=== PATIENT | male | born 1955 | race Caucasian/White ===

== ENCOUNTER 2018-04-22 11:18 | Inpatient (IN) | payer BC ==
[~2018-04-22 11:18] MED LIST: Buffered Lidocaine 0.9% SYRIN* 5 ML/SYR SYRINGE INTRADERM ONE; Dexamethasone IV* 4 MG/ML 1 ML (4 MG) IV SLOW PU ONE; Famotidine IV* 10 MG/ML 2 ML (20 mg) IV ONE
--- OUTSIDE RECORDS SUMMARY | 2018-04-22 11:22 | XMS REPORT ---
:1955 External Reference #:[id number] Author Organization [employer] Address [address] [place] [address] [place] [address] Phone [phone] Care Team Providers Name Role Phone Juan Diego Rolle MD Primary Care Physician Unavailable Payers Type Date Identification Numbers Payment Provider Subscriber Commercial Effective: Policy Number: BS [employer] Ned Stiles Jennyfer 2013 [id number] PayID: [id number] [address] [address] [place] [address] Medigap Part B Expires: 2014 Policy Number: [employer]arianna Jaymie Trivedi Jennyfer [id number] PayID: [employer] [address] [place] [address] Problems Date Description Provider Status Onset: 07/15/2017 Neck pain Deyanira Stuart MD Active Onset: 07/15/2017 Displacement of cervical Deyanira Stuart MD Active intervertebral disc Onset: 07/15/2017 Brachial neuritis Deyanira Stuart MD Active Onset: 08/26/2017 Cervical disc disorder Deyanira Stuart MD Active Onset: 02/23/2018 Cervical spondylosis with Deyanira Stuart MD Active myelopathy Family History Date Family Member(s) Problem(s) Comments General Diabetes General Heart Disease Siblings 1 Social History Type Date Description Comments Marital Status Lives With Occupation Currently Working Works at [employer] work Cigarette Use Never Smoked Cigarettes ETOH Use Occasionally consumes alcohol Smoking Patient has never smoked Recreational Drug Use Denies Drug Use Daily Caffeine Consumes on average 4 cups of regular coffee per day Exercise Type/Frequency Exercises sporadically Allergies, Adverse Reactions, Alerts Date Description Reaction Status Severity Comments 05/30/2013 Ibuprofen active 08/26/2017 Wasp Venoms active Medications Medication Date Status Form Strength Qnty SIG Indications Ordering Provider No Active Active Unknown Medications 015 Percocet Hx Tablets 5-325mg 40tabs 1-2 by Freda 015 - mouth Mitch Akhtar every 015 4-6 hour as needed pain No Active Hx Unknown Medications 013 - 014 No Active Hx Unknown Medications 013 - 013 Ultracet Hx Tablets 37.5-325mg 30tabs 1 - 2 po Freda Coombs - q4-6hr Mitch Akhtar prn pain 013 Medrol Dosepak Hx Tablets 4mg Samuel Mensah - Zupruk, Mitch 013 Hydrocodone-Ac Hx Tablets 5-325mg 30tabs 1 by Freda etaminophen 000 - mouth Mitch Akhtar every 6 015 hours prn. Medications Administered in Office Medication Date Status Form Strength Qnty SIG Indications Ordering Provider Depomedrol Administered Injection Freda 80MG Malvin Akhtar M.D. Vital Signs Date Vital Result Comment 03/29/2018 Height 71 inches 5'11" Weight 193.00 lb Heart Rate 70 /min BP Systolic 118 mmHg BP Diastolic 80 mmHg BMI (Body Mass Index) 26.9 kg/m2 03/16/2018 Height 71 inches 5'11" Weight 190.00 lb BP Systolic Sitting 124 mmHg BP Diastolic Sitting 80 mmHg Pain Level 5 BMI (Body Mass Index) 26.5 kg/m2 02/23/2018 Height 71 inches 5'11" Weight 190.00 lb BP Systolic Sitting 138 mmHg BP Diastolic Sitting 84 mmHg Pain Level 6 BMI (Body Mass Index) 26.5 kg/m2 08/26/2017 Height 71 inches 5'11" Weight 190.00 lb Heart Rate 68 /min BP Systolic Sitting 122 mmHg BP Diastolic Sitting 72 mmHg Pain Level 3 BMI (Body Mass Index) 26.5 kg/m2 07/15/2017 Height 71 inches 5'11" Weight 191.00 lb Heart Rate 74 /min BP Systolic Sitting 124 mmHg BP Diastolic Sitting 67 mmHg Pain Level 6 BMI (Body Mass Index) 26.6 kg/m2 01/10/2015 Heart Rate 68 /min BP Systolic Sitting 110 mmHg BP Diastolic Sitting 74 mmHg 11/27/2014 Heart Rate 68 /min BP Systolic Sitting 112 mmHg BP Diastolic Sitting 72 mmHg 11/01/2014 Heart Rate 78 /min BP Systolic Sitting 122 mmHg BP Diastolic Sitting 80 mmHg 10/04/2014 Heart Rate 78 /min BP Systolic Sitting 122 mmHg BP Diastolic Sitting 76 mmHg 09/06/2014 Heart Rate 78 /min BP Systolic Sitting 128 mmHg BP Diastolic Sitting 80 mmHg 08/21/2014 Height 71 inches 5'11" Weight 187.00 lb Heart Rate 66 /min BP Systolic Sitting 112 mmHg BP Diastolic Sitting 72 mmHg BMI (Body Mass Index) 26.1 kg/m2 07/05/2014 Heart Rate 76 /min BP Systolic Sitting 128 mmHg BP Diastolic Sitting 82 mmHg 06/28/2014 Height 71 inches 5'11" Weight 187.00 lb Heart Rate 71 /min BP Systolic Sitting 112 mmHg BP Diastolic Sitting 72 mmHg BMI (Body Mass Index) 26.1 kg/m2 05/30/2013 Height 71 inches 5'11" Weight 190.00 lb BMI (Body Mass Index) 26.5 kg/m2 Results Test Date Test Result H/L Range Note Surgical Pathology 08/29/2014 S RUN DATE: 09/06/ <SEE NOTE> 1 1 RUN DATE: 09/06/14 [facility] LAB LIVE PAGE 1 RUN TIME: [address] [place] [id number] Specimen Inquiry Name: NED BURGER : [address]: Freda Akhtar MD Acct: [id number] Unit: [id number] AGE: 59 Location: [facility] Re08/29/14 SEX: M Status: REG SDC SPEC: [id number] MARLYN: 08/29/14- [facility] DR: Freda Akhtar MD REQ: [id number] RECD: 08/29/14 STATUS: SOUT _ ORDERED: Decal, LEVEL III FINAL DIAGNOSIS Left shoulder, partial resection: -- Benign cartilaginous and synovial tissue fragments with reactive change. -- Portion of acromium with severe degenerative osteoarthritic changes and normocellular bone marrow with mixed trilinear hematopoiesis. PRE-OPERATIVE DIAGNOSIS Left rotator cuff tear. GROSS DESCRIPTION The specimen is received in formalin labeled, Portion of Acromion Left Shoulder and Bursa, and consists of a 3.5 x 3.0 x 1.2 cm aggregate of multiple penn-red irregular bone fragments. Received separately in the same container is a 2.8 x 1.7 x 0.5 cm aggregate of penn-white rubbery soft tissue fragments. Range Operator sections are submitted in cassettes A and B to include soft tissue in cassette A and bone following decalcification in cassette B. MICROSCOPIC DESCRIPTION Signed (signature on file) Mich Jean MD 1355 END OF REPORT * ML=Testing performed at Main Lab DEPARTMENT OF PATHOLOGY, [address] [place] [address] Mich Jean M.D. Director [facility] # [id number] Procedures Date CPT Code Description Status 08/29/2014 07467 Repair Ruptured Musculotendinous Cuff Open, Chronic Completed 07/05/2013 17131 Trigger Finger Release Incision / Tendon Sheath Completed Incision 07/05/2013 96126 Trigger Finger Release Incision / Tendon Sheath Completed Incision 12/30/2012 02002 Inject Tendon Sheath Or Ligament Aponeurosis Eg Plantar Completed Fascia Encounters Type Date Location Provider CPT E/M Dx Office Visit 03/16/2018 [facility] 98965 M50.122 3:30p Of Kaur Stuart MD M50.123 M47.12 M50.220 M48.02 Office Visit 02/23/2018 9:00a [facility] 78579 M50.122 Of Kaur Stuart MD M50.123 M47.12 Office Visit 08/26/2017 1:00p [facility] 85166 M50.220 Of Kaur Stuart MD M50.122 M50.123 Office Visit 07/15/2017 10:30a [facility] 44529 M50.220 Of Kaur Stuart MD M50.122 M50.123 Office Visit 01/10/2015 8:15a [facility] 41423 840.4 [facility] 9:[facility]a [facility] 06257 840.4 [facility]/2014 1:30p [facility] 79503 840.4 [facility] 06/28/2014 1:00p [facility] 56549 840.4 [facility] 05/30/2013 10:00a [facility] 99800 727.03 Kaur PARADA [facility] Office Visit 11/17/2011 9:00a [facility] 87671 729.5 Of Kaur Meyer Office Visit 01/21/2007 9:15a [facility] 57444 721.0 Of Kaur Meyer 722.0 Office Visit 01/13/2007 10:15a [facility] Jaqueline, 37887 722.0 [facility] Mitch Plan of Care Future Appointment(s):04/20/2018 4:00 pm - Deyanira Stuart MD at [facility]04/22/2018 10:30 am - Deyanira Stuart MD at [facility]03/29/2018 - Dillan Gross M.D.M50.123 Cervical disc disorder at C6-C7 level with radiculopathy
--- OUTSIDE RECORDS SUMMARY | 2018-04-22 11:22 | XMS REPORT ---
:1955 External Reference #:[id number] Author Organization [facility] Address [address] [place] [address] Phone [phone] Care Team Providers Name Role Phone Juan Diego Rolle MD Care Team Information Cartography Supervisor Unavailable Juan Diego Rolle MD Primary Care Physician Unavailable Payers Type Date Identification Numbers Payment Provider Subscriber Commercial Effective: Policy Number: BC/BS Of LIAT Ned Rodarte 2012 [id number] Group Name: [employer] [address] [address] PayID: [id number] [place] [address] Problems Date Description Provider Status Onset: 06/30/2017 Neck pain Juan Diego Rolle M.D. Active Onset: 10/16/2016 Sprain of medial collateral ligament Abimael Worley M.D. Active of knee Onset: 11/12/2015 Benign prostatic hypertrophy without Juan Diego Rolle M.D. Active outflow obstruction Onset: 11/12/2015 Adult health examination Juan Diego Rolle M.D. Active Onset: 04/16/2012 Acute upper respiratory infection Majninder Muñoz M.D. Active Social History Type Date Description Comments Occupation Size Stamper TC3 Cigarette Use Nonsmoker Smoking Patient has never smoked Allergies, Adverse Reactions, Alerts Date Description Reaction Status Severity Comments 08/15/2003 Ibuprofen active 04/16/2012 Wasps active Medications Medication Date Status Form Strength Qnty SIG Indications Ordering Provider Epipen 2-Dusty 05/02 Active Solution 0.3mg/0.3 1unit as directed Juan Diego Petit Hua [employer] ML s [place], [place] M.D. Methylprednisolone 06/30 Hx TBPK 4mg 21uni take as Juan Diego F. ts directed Aquilino - M.DMarianna 03/17 Tramadol HCL 06/30 Hx Tablets 50mg 30tab 1 by mouth Juan Diego F. s every 6 Shallish, - hours as M.D. 03/17 Prednisone 10/16 Hx Tablets 20mg 10tab 1 by mouth S83.411A Abimael T. s twice a day Meir, - for 5 days M.D. 06/29 Prednisone 06/14 Hx Tablets 20mg 10tab 1 by mouth 726.19 Oc s twice a day Azam, - for 5 days M.D. 11/11 Hydrocodone-Acetam 06/14 Hx Tablets 5-325mg 20tab 1 every 6 726.19 Oc ino s hours as Azam, - needed M.D. 11/11 Zithromax Z-Dusty 04/16 Hx Tablets 250mg 1Pack as directed Manjinder Lawson Cristine Muñoz M.D. 06/14 Gabapentin 11/06 Hx Capsules 100mg 60cap 1 po tid . edgar Rolle - M.DMarianna 04/16 Azithromycin 10/31 Hx Tablets 250mg 6tabs take 2 465.9 tablets by Ragini, - mouth CLINICAL WRITER 11/06 today take 1 tablet daily for next 4 days Physical Therapy 01/15 Hx please Yolanda evaluate [facility], - and treat Afnp-C 10/31 for l knee pain--suspe ct patellar syndrome Azithromycin 12/15 Hx Tablets 250mg 6tabs 2 po today Abimael T. and 1 po x Midura, - 4 days M.D. 01/15 Penlac 12/15 Hx Solution 8% 1Bott apply q hs Abimael T. le Meir, - M.D. 11/06 Robitussin A-C 03/10 Hx 4Oz 1-2 tsp po Juan Diego F. q4h prn Aquilino, - cough M.D. 12/15 Zithromax 03/10 Hx Tablets 250mg 6Tabs 2 po qd 466.0 Juan Diego . today , Aquilino, - then 1 po M.D. 03/13 qd times Augmentin 06/30 Hx Tablets 875mg 20tab 1 PO bid Yolanda s Rosmery, - Afnp-C 07/10 Take With Food Hydrocodone/Apap 01/07 Hx Tablets 5/500 60tab 1-2 po q Juan Diego F. s 4-6 hr prn Aquilino - M.DMarianna 03/10 Flexeril 01/07 Hx Tablets 10mg 30tab 1 po tid Juan Diego F. s prn muscle Aquilino, - spasm M.D. 03/10 Lotrimin 07/28 Hx Solution 1% use 1-2 Manjinder Lawson /2005 qhs Cristine Muñoz M.D. 03/10 Prednisone 06/03 Hx Tablets 20mg 10tab 2 tabs po Juan Diego . s qd for 2 Aquilino, - days, then M.D. 07/06 decrease 2 tab every 2 days then stop Margo 06/03 Hx 180mg 30uni 1 po qd prn Abimael T. ts Cristine Worley.DMarianna 11/06 Motrin 05/22 Hx 600mg 40uni 1 PO tid . ts prn With Aquilino, - Meals M.D. 08/15 Entex Pse 08/16 Hx 20uni 1 PO bid ts prn Head [facility], - Congestion Afnp-C 08/26 Robitussin Dac 08/16 Hx Liq 120cc 1-2 TSP PO qid prn [facility], - Cough Afnp-C 08/26 Amoxicillin 10/02 Hx Tablets 500mg 21tab 1 Tablet 3 Juan Diego F. s Times Daily Cristine Rolle M.D. 10/15 Entex Pse 10/02 Hx 20uni 1 bid prn Juan Diego F. ts Congestion Cristine Rolle M.D. 10/15 Medrol 03/09 Hx Dose Pack 1unit as Directed Mich Pierce /2000 Cristine Jha M.D. 03/15 Epipen 03/09 Hx 1unit as directed Abimael Whitehead /2000 Cristine Monroy M.D. 05/02 Keflex 04/03 Hx Tabs 5Oomg 14tab 1 PO bid Manjinder Lawson /1998 Cristine Engel M.D. 04/10 Medications Administered in Office Medication Date Status Form Strength Qnty SIG Indications Ordering Provider Injection 06/03/ Injection Renetta Subcutaneous Or 2003 Ragini, Intramuscular CLINICAL WRITER Immunizations CPT Code Status Date Vaccine Lot # [id number] Given 11/12/2015 Tdap Tetanus, W Pertussis [id number] Given 01/05/2015 Zostivax [id number] Given 05/07/2013 DO Not Use Split Influenza Virus Vaccine [id number] 52513 Given 05/27/2008 DO Not Use Split Influenza Virus Vaccine [id number] 32495 Given 06/30/2007 Tetanus And Diptheria Adult Preservative Free >7Yrs 67226 Given 06/05/2007 DO Not Use Split Influenza Virus Vaccine [id number] 92365 Given 06/29/2006 DO Not Use Split Influenza Virus Vaccine 21719 Given 06/19/2005 DO Not Use Split Influenza Virus Vaccine [id number] Given 06/22/2003 DO Not Use Split Influenza Virus Vaccine 26952 Given 06/22/2003 DO Not Use Split Influenza Virus Vaccine 12545 Given 07/12/2002 Influenza Immunization Vital Signs Date Vital Result Comment 04/17/2018 BP Systolic 90 mmHg BP Diastolic 60 mmHg Heart Rate 72 /min Body Temperature 98.1 F Respiratory Rate 16 /min Height 71 inches 5'11" Weight 195.00 lb BMI (Body Mass Index) 27.2 kg/m2 06/30/2017 BP Systolic 110 mmHg BP Diastolic 78 mmHg Heart Rate 78 /min Body Temperature 97.9 F Height 71 inches 5'11" Weight 199.12 lb BMI (Body Mass Index) 27.8 kg/m2 10/16/2016 BP Systolic 114 mmHg BP Diastolic 72 mmHg Heart Rate 90 /min Body Temperature 98.1 F Respiratory Rate 16 /min Height 71 inches 5'11" Weight 201.25 lb BMI (Body Mass Index) 28.1 kg/m2 11/12/2015 BP Systolic 128 mmHg BP Diastolic 72 mmHg Heart Rate 62 /min Body Temperature 97.7 F Respiratory Rate 12 /min Height 71 inches 5'11" Weight 199.25 lb BMI (Body Mass Index) 27.8 kg/m2 06/14/2014 BP Systolic 128 mmHg BP Diastolic 76 mmHg Heart Rate 72 /min Body Temperature 97.9 F Respiratory Rate 16 /min Height 71 inches 5'11" Weight 198.00 lb BMI (Body Mass Index) 27.6 kg/m2 04/16/2012 BP Systolic 112 mmHg BP Diastolic 68 mmHg Heart Rate 78 /min Body Temperature 97.7 F Respiratory Rate 20 /min O2 % BldC Oximetry 97 % Height 71 inches 5'11" Weight 198.00 lb BMI (Body Mass Index) 27.6 kg/m2 11/07/2011 BP Systolic 112 mmHg BP Diastolic 68 mmHg Heart Rate 68 /min Respiratory Rate 15 /min Height 71 inches 5'11" Weight 199.00 lb BMI (Body Mass Index) 27.8 kg/m2 10/31/2010 BP Systolic 110 mmHg BP Diastolic 60 mmHg Heart Rate 80 /min Body Temperature 98.3 F Respiratory Rate 22 /min Weight 197.00 lb 01/15/2010 BP Systolic 110 mmHg BP Diastolic 66 mmHg Heart Rate 68 /min Body Temperature 97.4 F Respiratory Rate 20 /min Weight 196.00 lb 12/15/2009 BP Systolic 106 mmHg BP Diastolic 66 mmHg Heart Rate 72 /min Body Temperature 98.6 F Height 71 inches 5'11" Weight 194.00 lb BMI (Body Mass Index) 27.1 kg/m2 03/10/2009 BP Systolic 120 mmHg BP Diastolic 70 mmHg Heart Rate 88 /min Body Temperature 99.4 F Height 71 inches 5'11" Weight 194.00 lb BMI (Body Mass Index) 27.1 kg/m2 03/15/2008 BP Systolic 114 mmHg BP Diastolic 62 mmHg Heart Rate 70 /min Height 71 inches 5'11" Weight 198.00 lb BMI (Body Mass Index) 27.6 kg/m2 06/30/2007 BP Systolic 124 mmHg BP Diastolic 82 mmHg Heart Rate 66 /min Respiratory Rate 13 /min Height 71 inches 5'11" 01/07/2007 BP Systolic 110 mmHg BP Diastolic 80 mmHg Heart Rate 68 /min Body Temperature 98.7 F Height 71 inches 5'11" Weight 196.00 lb BMI (Body Mass Index) 27.3 kg/m2 07/28/2006 BP Systolic 100 mmHg BP Diastolic 70 mmHg Body Temperature 98.8 F Height 71 inches 5'11" Weight 202.00 lb BMI (Body Mass Index) 28.2 kg/m2 01/30/2006 BP Systolic 116 mmHg BP Diastolic 70 mmHg Heart Rate 60 /min Height 71 inches 5'11" Weight 207.00 lb BMI (Body Mass Index) 28.9 kg/m2 03/15/2004 BP Systolic 112 mmHg BP Diastolic 82 mmHg Heart Rate 74 /min Height 71 inches 5'11" Weight 202.00 lb BMI (Body Mass Index) 28.2 kg/m2 08/15/2003 BP Systolic 110 mmHg BP Diastolic 78 mmHg Heart Rate 80 /min Body Temperature 98.9 F Height 71 inches 5'11" Weight 201.00 lb BMI (Body Mass Index) 28.0 kg/m2 07/06/2003 BP Systolic 110 mmHg BP Diastolic 88 mmHg Heart Rate 72 /min Body Temperature 96.4 F Height 71 inches 5'11" Weight 201.00 lb BMI (Body Mass Index) 28.0 kg/m2 06/03/2003 BP Systolic 92 mmHg BP Diastolic 72 mmHg Heart Rate 76 /min Body Temperature 96.0 F Height 71 inches 5'11" 05/22/2003 BP Systolic 102 mmHg BP Diastolic 60 mmHg Height 71 inches 5'11" Weight 200.00 lb BMI (Body Mass Index) 27.9 kg/m2 08/16/2002 BP Systolic 92 mmHg BP Diastolic 68 mmHg Body Temperature 98.8 F Height 71 inches 5'11" Weight 197.00 lb BMI (Body Mass Index) 27.5 kg/m2 10/02/2001 BP Systolic 98 mmHg BP Diastolic 70 mmHg Body Temperature 97.8 F Height 71 inches 5'11" Weight 183.00 lb BMI (Body Mass Index) 25.5 kg/m2 03/09/2001 BP Systolic 108 mmHg BP Diastolic 68 mmHg Heart Rate 70 /min Body Temperature 98.0 F Respiratory Rate 16 /min Height 71 inches 5'11" Weight 190.00 lb BMI (Body Mass Index) 26.5 kg/m2 05/14/2000 BP Systolic 110 mmHg BP Diastolic 64 mmHg Height 71 inches 5'11" Weight 193.00 lb BMI (Body Mass Index) 26.9 kg/m2 04/03/1999 BP Systolic 120 mmHg BP Diastolic 84 mmHg Height 71 inches 5'11" Weight 189.00 lb 02/19/1998 BP Systolic 110 mmHg BP Diastolic 70 mmHg Body Temperature 97.6 F Height 71 inches 5'11" Weight 185.00 lb Right Visual Acuity Distance 20/20 Left Visual Acuity Distance 20/20 04/25/1997 BP Systolic 100 mmHg BP Diastolic 70 mmHg Heart Rate 8484 /min Body Temperature 98.7 F Respiratory Rate 2020 /min Height 56.50 inches 4'8.50" Weight 77.00 lb Results Test Date Test Result H/L Range Note Urinalysis Profile 04/16/2018 Urine Color Yellow 1 Urine Appearance Clear 1 Urine Specific Mcdougal 1.015 1.010-1.030 1 Urine pH 7.0 5-9 1 Urine Urobilinogen Negative Negative 1 Urine Ketones Negative Negative 1 Urine Protein Negative Negative 1 Urine Leukocytes Negative Negative 1 Urine Blood Negative Negative 1 Urine Nitrite Negative Negative 1 Urine Bilirubin Negative Negative 1 Urine Glucose Negative Negative 1 CBC No Diff 2018 White Blood Count 6.7 10^3/uL 3.5-10.8 Red Blood Count 5.16 10^6/uL 4.00-5.40 Hemoglobin 15.6 g/dL 14.0-18.0 Hematocrit 44 % 42-52 Mean Corpuscular Volume 86 fL 80-94 Mean Corpuscular Hemoglobin 30 pg 27-31 Mean Corpuscular HGB Conc 35 g/dL 31-36 Red Cell Distribution Width 14 % 10.5-15 Platelet Count 210 10^3/uL 150-450 Mean Platelet Volume 8.2 um3 7.4-10.4 Basic Metabolic Panel 2018 Sodium 140 mmol/L 135-145 Potassium 4.5 mmol/L 3.5-5.0 Chloride 104 mmol/L 101-111 Co2 Carbon Dioxide 30 mmol/L 22-32 Anion Gap 6 mmol/L 2-11 Glucose 87 mg/dL 70-100 Blood Urea Nitrogen 14 mg/dL 6-24 Creatinine 0.94 mg/dL 0.67-1.17 BUN/Creatinine Ratio 14.9 8-20 Calcium 9.3 mg/dL 8.6-10.3 Egfr Non- 80.8 >60 Egfr 97.8 >60 2 Laboratory test finding 2018 TSH (Thyroid Stim Horm) 2.16 mcIU/mL 0.34-5.60 Inr/Protime 2018 Inr 0.88 0.77-1.02 Laboratory test finding 2018 Partial Thrombo Time 31.8 seconds 26.0 -36.3 PTT Type & Screen 2018 Patient Blood Type O Positive Antibody Screen NEGATIVE Laboratory test finding 02/06/2016 Surgical Pathology SEE RESULT BELOW 3 Ua - Non Micro (Fma) 11/12/2015 Appearance yellow Color clear Glucose, Urine (Fma/CMC/CTX) neg Bilirubin neg Ketones neg SP Grav >=1.030 Blood neg PH 6.0 Protein neg Urobil 0.2 Nitrite neg Leukocytes (a/[facility]rex) neg Laboratory test finding 11/12/2015 TSH 2.27 mIU/L 0.50-6.00 4 PSA 0.7 ng/mL 0.0-4.0 Lipid Profile 11/12/2015 Cholesterol 238 mg/dL High 120-200 Triglycerides 82 mg/dL 30-200 HDL Cholesterol 60 mg/dL 30-70 LDL (Calculated) 162 CALC High 0-129 VLDL Cholesterol 16 mg/dL 0-50 HDL Risk Factor 4.0 CALC 0.0-4.4 Comprehensive Metabolic Prof 11/12/2015 Sodium 145 mEq/L 134-149 Potassium 5.1 mEq/L 3.6-5.5 Chloride 105 mEq/L 94-112 Carbon Dioxide 25 mEq/L 21-32 Glucose 104 mg/dL 70-105 BUN 19 mg/dL 6-26 Creatinine 1.0 mg/dL 0.6-1.4 BUN/Creat Ratio 19.0 CALC 8.0-36.0 Calcium 10.1 mg/dL 8.6-10.2 Total Protein 7.5 g/dL 6.4-8.3 Albumin 4.8 g/dL 3.8-5.5 Globulin 2.7 g/dL 2.0-4.8 A/G Ratio 1.8 CALC 0.6-2.3 Alk. Phosphatase 69 U/L 22-95 Alt (SGPT) 16 U/L 7-35 Ast (Sgot) 17 U/L 5-34 Total Bilirubin 0.6 mg/dL 0.2-1.3 GFR Non- >60 ml/min/1.73m^ >=60 GFR >60 ml/min/1.73m^ >=60 Complete Blood Count 11/12/2015 WBC 5.9 x10^3/UL 3.6-9.6 RBC 5.41 x10^6/UL 3.90-5.70 HGB 16.3 g/dL 12.1-17.2 HCT 48 % 36-50 MCV 88.0 fL 82.2-97.4 MCH 30.1 pg 27.6-33.3 MCHC 34.0 g/dL 33.0-35.5 RDW 13.5 % 11.6-13.7 PLT 194 x10^3/UL 150-400 MPV 7.6 fL 7.4-10.4 Gran # 4.2 x10^3/UL 1.5-7.2 Lymph# 1.4 x10^3/UL 0.7-4.9 [place]# 0.3 x10^3/UL 0.1-0.9 Gran % 69.7 % 42.2-75.2 Lymph % 24.9 % 20.5-51.1 [place]% 5.4 % 1.7-9.3 Laboratory test finding 04/16/2012 Quickstrep negative Negative Influenza A&B 03/10/2009 Influenza A negative Influenza B negative Laboratory test finding 08/15/2003 Throat Culture NEGATIVE Comp And Lipid (a) 04/04/1999 Alkaline Phosphatase 44 U/L 40 - 150 BUN 10 mg/dL 7.0 - 22.0 Creatinine 0.8 mg/dL 0.70 - 1.20 Glucose 99 mg/dL 70 - 105 Cholesterol 201 mg/dL High < 200 Triglyceride 66 mg/dL 40 - 160 HDL-Chol 63 mg/dL > 35 Albumin 5.2 GM/DL 3.50 - 5.50 Total Protein 8.3 g/dL 6.4 - 8.3 Calcium 9.9 mg/dL 9.10 - 10.60 Bilirubin, Total 0.5 mg/dL 0.2-1.0 Co2 20.6 22.0 - 30.0 Sodium 136 mEq/L 136.0 - 145.0 Potassium 5.4 mEq/L 3.5 - 5.1 Chloride 105 mEq/L 98.0 - 107.0 LDL-Calculated 125 CBC With Diff (a) 04/04/1999 WBC 3.9 /Hpf 3.6 - 9.6 Lymphocytes 35.0 % 20.5 - 51.1 Monocytes 6.4 % 1.7 - 9.3 Granulocytes 58.6 % 42.2 - 75.2 Lymphocytes 1.4 10^3/uL 0.7 - 4.9 Monocytes 0.2 10^3/uL 0.1 - 0.9 Granulocytes 2.3 10^3/uL 1.5 - 7.2 RBC 4.47 /Hpf 3.90 - 5.70 Hemoglobin 13.8 g/dL 12.1 - 17.2 Hematocrit 40.2 % 36.1 - 50.3 Mean Corpuscular Vol 90.0 fl 82.2 - 97.4 Mean Corpuscular Hemaglobin 30.8 pg 27.6 - 33.3 Mean Corpuscular Hemo Concen 34.3 g/dL 33.0 - 34.8 RDW 13.2 % 11.6 - 13.7 Platelets 21 10^3/ul 202 - 386 Mean Platelet Volume 8.3 fl 7.4 - 10.4 Ua - Non Micro (Fma New) 04/04/1999 Appearance YEL CLEAR SP Grav 1.030 Esterase - Nitrite - pH 5.0 Protein - Glucose - Ketones - Bilirubin - Blood - 1 AA 04/22 2 Because ethnic data is not always readily available, this report includes an eGFR for both -Americans and non- Americans. The National Kidney Disease Education Program (NKDEP) does not endorse the use of the MDRD equation for patients that are not between the ages of 18 and 70, are , have extremes of body size, muscle mass, or nutritional status, or are non- or non-. According to the National Kidney Foundation, irrespective of diagnosis, the stage of the disease is based on the level of kidney function: Stage Description GFR(mL/min/1.73 m(2)) 1 Kidney damage with normal or decreased GFR 90 2 Kidney damage with mild decrease in GFR 60-89 3 Moderate decrease in GFR 30-59 4 Severe decrease in GFR 15-29 5 Kidney failure <15 (or dialysis) 3 SEE RESULT BELOW Name: NDE RODARTE: [address]: Nestor Hand MD Acct: [id number] Unit: [id number] AGE: 60 Location: ENDO Re02/06/16 SEX: M Status: REG REF SPEC: [id number] MARLYN: 02/06/16-[address]: Nestor Hand MD REQ: [id number] RECD: 02/06/16-1617 STATUS: USAMA ANSARI DR: Juan Diego Rolle MD _ ORDERED: LEVEL IV FINAL DIAGNOSIS Colon, 20 cm, biopsy: -- Tubular adenoma. -- No high grade dysplasia or malignancy. POST-OPERATIVE DIAGNOSIS Colonoscopy into terminal ileum, prep good. Small sigmoid colon polyp removed, sigmoid diverticulosis. Conclusions/Plan: Small polyp removed. GROSS DESCRIPTION The specimen is received in formalin labeled, Colon Polyp at 20 cm, and consists of a 0.5 x 0.3 x 0.2 cm speckled penn-red polypoid soft tissue fragment, which is entirely submitted in one cassette. Signed (signature on file) Mich Jean MD [id number] END OF REPORT * ML=Testing performed at Main Lab DEPARTMENT OF PATHOLOGY, [address] [place] [address] Mich Jean M.D. Director [facility] # [id number] FASTING Procedures Date CPT Code Description Status Comment 02/06/2016 Colonoscopy Completed 11/12/2015 33576 Electrocardiogram Complete Completed 04/16/2012 28512 Pulse Oximetry Completed 06/03/2003 27829 Injection Subcutaneous Or Completed 1ML R GLUT DEPOMEDROL Intramuscular 40MG/ML CJ Encounters Type Date Location Provider CPT E/M Dx Office Visit 06/30/2017 3:40p Main Office Juan Diego Rolle, 36420 M54.2 M.DMarianna Office Visit 10/16/2016 2:10p [facility] Abimael Worley M.D. 83154 S83.411A Office Visit 11/12/2015 9:00a [facility] Juan Diego Rolle 08891 Z00.00 Mitch N40.0 Z23 Office Visit 06/14/2014 3:00p Main Office Oc Nascimento M.D. 33420 726.19 Office Visit 04/16/2012 11:00a Main Office Manjinder Muñoz M.D. 45289 465.9 Office Visit 11/07/2011 9:40a [facility] Juan Diego Rolle M.D. 46410 723.1 Office Visit 10/31/2010 1:45p [facility] RC Santiago 18460 465.9 Office Visit 01/15/2010 4:00p [facility] Brianna Hidalgo 17383 719.46 Office Visit 12/15/2009 9:40a Main Office Abimael Worley M.D. 39478 466.0 465.9 461.9 Office Visit 03/10/2009 2:00p Main Office Juan Diego Rolle M.D. 42954 466.0 Office Visit 03/15/2008 6:00p Main Office Brianna Hidalgo 51834 916.4 Office Visit 06/30/2007 4:30p Main Office Brianna Hidalgo 61187 681.01 V06.5 Office Visit 01/07/2007 10:30a Main Office Juan Diego Rolle M.D. 70744 723.4 Office Visit 07/28/2006 4:20p [facility] Manjinder Muñoz M.D. 27298 110.1 Office Visit 01/30/2006 11:00a Main Office Abimael Worley M.D. 17077 726.19 Office Visit 03/15/2004 10:10a [facility] Kaylin Sparks, 84319 729.2 M.DMarianna Office Visit 08/15/2003 10:45a [facility] Renetta Eid [facility] 22142 465.9 462 Office Visit 07/06/2003 10:00a Main Office Aggie HopkinsPeter-C 41469 477.9 Office Visit 06/03/2003 11:30a Main Office RC Santiago 62762 708.9 Office Visit 05/22/2003 1:30p [facility] Juan Diego Rolle M.D. 54473 719.41 Office Visit 08/16/2002 1:00p Main Office Brianna Hidalgo 80510 465.9 Office Visit 10/02/2001 11:20a Main Office Juan Diego Rolle M.D. 84161 Office Visit 09/18/2001 12:00p Main Office Brianna Hidalgo 62782 Office Visit 03/09/2001 8:00p Main Office Mich Wetzel M.D. 17924 Office Visit 05/14/2000 10:00a Main Office Mich Wetzel M.D. 40576 Plan of Care 04/17/2018 - Juan Diego Rolle M.D.M54.2 CervicalgiaComments:Patient is in excellent general health , I feel he is medically cleared for the planned surgery by Dr. WilderComments:Patient to return for a complete physical within a year
[2018-04-22] MEDS ORDERED: Famotidine IV* 10 MG/ML 2 ML (20 mg) ONE (11:39)
[2018-04-22] MEDS ORDERED: Dexamethasone IV* 4 MG/ML 1 ML (4 MG) ONE (11:39)
[2018-04-22] MEDS ORDERED: ceFAZolin 2 GM PREMIX in ORs 2 GM/50 ML BAG IVPB ONE (11:39)
[2018-04-22] MEDS ORDERED: fentaNYL* 50 MCG/ML 5 ML VIAL (250 MCG VIAL) ONE (12:04)
[2018-04-22] MEDS ORDERED: Midazolam* 1 MG/ML 2 ML VIAL (2 MG) ONE (12:04)
[2018-04-22] MEDS ORDERED: Rocuronium* 10 MG/ML VIAL ONE (12:04)
[2018-04-22] MEDS ORDERED: Remifentanil* 2 MG VIAL ONE ×2 (12:05→16:15)
[2018-04-22] MEDS ORDERED: Lidocaine 2% PF * 5 ML VIAL ONE (12:10)
[2018-04-22] MEDS ORDERED: Propofol* 10 MG/ML 20 ML BTL IV PUSH ONE (12:10)
[2018-04-22] MEDS ORDERED: Lidocain 1% EPI 1:100,000 * 30 ML MDV ONE (13:06)
[2018-04-22] MEDS ORDERED: Thrombin 5,000 UNITS* 1 APPLIC KIT - topical use - TOPICAL ONE (13:06)
[2018-04-22] MEDS ORDERED: Bacitracin IV* 50,000 UNITS INJ ONE (13:07)
[2018-04-22] MEDS ORDERED: Atracurium* 10 MG/ML 10 ML VIAL ONE (14:51)
[2018-04-22] MEDS ORDERED: HYDROcodone/ACETAMIN 5-325 MG* 1 TAB PO PRN (15:48)
[2018-04-22] MEDS ORDERED: Acetaminophen TAB* 325 MG PO PRN ×2 (15:48→18:32)
[2018-04-22] MEDS ORDERED: Naloxone* 0.4 MG/ML 1 ML VIAL IV PRN (15:48)
[2018-04-22] MEDS ORDERED: DiMENhydriNATE IV* 50 MG/ML VIAL IV PUSH PRN (15:48)
[2018-04-22] MEDS ORDERED: Ondansetron INJ* 2 MG/ML VIAL IV PRN ×2 (15:48→18:32)
[2018-04-22] MEDS ORDERED: Desflurane* 240 ML INH ONE (17:15)
[2018-04-22] MEDS ORDERED: ceFAZolin 1 GM VIAL(*) ONE (17:46)
[2018-04-22] MEDS ORDERED: Ondansetron INJ* 2 MG/ML VIAL ONE (18:07)
[2018-04-22] MEDS ORDERED: Magnesium Hydroxide LIQ* 30 ML UDC PO PRN (18:32)
[2018-04-22] MEDS ORDERED: fentaNYL* 50 MCG/ML 2 ML VIAL (100 MCG VIAL) ONE (18:38)
[2018-04-22] MEDS: fentaNYL* 50 MCG/ML 2 ML VIAL (100 MCG VIAL) IV PRN ×4 (18:40→19:07)
[2018-04-22] MEDS ORDERED: Morphine INJ* 2 MG/ML 1 ML SYRINGE (TWO MG - NEW SYRINGE VERSION) ONE ×2 (19:09→19:29)
[2018-04-22] MEDS: Morphine INJ* 2 MG/ML 1 ML SYRINGE (TWO MG - NEW SYRINGE VERSION) IV PRN ×2 (19:10→19:30)
--- NOTE | 2018-04-22 19:18 | RAD ---
CPT II Codes: G9500 INDICATION: ACDF of the lower cervical spine TECHNIQUE: Intraoperative fluoroscopy was provided during ACDF of the lower cervical spine. FINDINGS: 4 spot films depict anatomic placement of a lower cervical spine plate and screw fixator with 3 prostatic intervertebral discs. Fluoroscopy time: 33.5 minutes IMPRESSION: As above.
[2018-04-22] MEDS ORDERED: HYDROcodone/ACETAMIN 5-325 MG* 1 TAB ONE (19:52)
[2018-04-23] MEDS: HYDROcodone/ACETAMIN 5-325 MG* 1 TAB PO PRN ×6 (00:25→20:42)
--- NOTE | 2018-04-23 02:36 | OP ---
DATE OF OPERATION: 04/22/18 - ROOM #342 DATE OF : 53 SURGEON: Deyanira Stuart MD [employer]ERS SUPERVISOR: NITA Campos ANESTHESIOLOGIST: ANESTHESIA: General. PRE-OP DIAGNOSIS: Degenerative disk disease with herniated nucleus pulposus. POST-OP DIAGNOSIS: Degenerative disk disease with herniated nucleus pulposus. OPERATIVE PROCEDURE: The patient underwent anterior cervical diskectomy and fusion at C4-C5, C5-C6 and C6-C7 with PEEK interbody cages, locally harvested autologous bone graft and DBX and plate. ESTIMATED BLOOD LOSS: 200 cc. COMPLICATIONS: None. SUMMARY: The patient is a very pleasant 63-year-old gentleman with complaints of neck pain radiating mostly to the left upper extremity with MRI findings consistent with multilevel degenerative disk disease at C4-C5, C5-C6, and C6- C7. After failing conservative treatment modalities, he was offered the option of surgical intervention in the form of anterior cervical diskectomy and fusion. After explaining the expectation, limitations, and possible complications of the procedure to the patient and his son with possible complications including, but not limited to, bleeding, infection, risk of injury to adjacent structures, coma, paralysis, , need for additional procedures, anesthesia risk, stroke, blindness, cancer, instability, hardware failure, adjacent level disease, pseudoarthrosis, Van's syndrome, spinal fluid leak, pseudo-meningocele, anesthesia risk, the need for tracheostomy, oral gastrostomy, risk of residual recurrent laryngeal nerve, need for additional procedures, anesthesia risk, the patient was agreeable to proceed with surgery. Informed consent was obtained. The patient and his family understood that his condition may not improve, in fact may get worse after the surgery and he may need to have additional procedure in the future. They also understood that operative plan may be modified according to the intraoperative findings and conditions. DESCRIPTION OF PROCEDURE: The patient was brought to the operating room and was placed under general anesthesia by the anesthesia team. He was carefully positioned supine on regular table and all bony prominences were meticulously padded. His skin was prepped and draped in the standard fashion. After appropriate surgical pause and patient identification, a small right paramedian incision was made on the skin after infiltrating the skin with local anesthetic. The correct level of incision was identified with the use of fluoroscopic imaging. After incising the skin, the incision was carried down to the platysma with the use of Bovie cautery. The skin was certainly undermined with Metzenbaum scissors and the platysma was divided with the use of Metzenbaum scissors and Bovie cautery. The platysma was undermined and the plane between the medial border of the sternocleidomastoid and the medial structures were gently developed with sharp and blunt dissection after gently dividing the omohyoid. Extensive exposure was performed in order to accommodate adequate exposure and minimize reduction on the soft tissue. Self- retaining retractors were introduced further into the field and [place] pins were placed at the C6-7 level. The [place] pin distractor was introduced into the field and extended diskectomy and decompression was performed after incising the annulus fibrosus with the use of #15 surgical blade. The diskectomy was carried out with use of pituitary rongeurs, Kerrison punches, curettes and high-speed drill. The posterior longitudinal ligament was gently divided under microscopic magnification and extensive foraminotomy was bilaterally well performed at the end of the decompression. The thecal sac was found to be free of any pressure phenomenon and the spinal cord was pulsating nicely. After confirmation of meticulous hemostasis and meticulous inspection and copious irrigation, an 8 mm x 14 mm anatomic PEEK interbody spacer was inserted after being filled with locally harvested bone graft, which was obtained during the diskectomy portion and mixed with DBX. The procedure was repeated for the C5-6 and C4-5 levels and then 8 mm height PEEK cage was introduced into the C5-6 disk space, while at the C4-5 disk space a 9 mm PEEK introduced in order to complete the arthrodesis between C4-5, C5-6, and C6-7. After appropriate sizing, a Zevo Medtronic anterior cervical plate 57 mm long was placed and secured in place with 3.5 x 13 mm Zevo PA screws. Intraoperative fluoroscopic imaging confirmed excellent placement of all hardware. After removing the self-retaining retractors and copious irrigation and confirmation of meticulous hemostasis and meticulous dissection of the wound , the wound was closed by layers over a Alvino drain, which was tunneled through a separate stab wound incision. A 2-0 interrupted Vicryl suture was used to approximate the platysma while 2-0 interrupted Vicryl suture was used to approximate the subcutaneous tissue. The skin was then approximated with Dermabond and adherent suture was used to secure the Alvino drain in place with 3 -0 Monocryl. At the end of the procedure, all counts were reported to be correct and the patient remained hemodynamically stable throughout the case. At the end of the procedure, he was extubated and was transferred to Recovery in excellent condition. The case was done with the assistance of the surgical PA because of the complexity of the case. [id number]/[facility] #: [id number] CHRISTIAN
--- NOTE | 2018-04-23 10:32 | RAD ---
HISTORY: s/p cervical fusion COMPARISONS: August 11, 2017 VIEWS: 5 , Frontal, lateral, and open-mouth odontoid views of the cervical spine. FINDINGS: The cervical spine is visualized from the skull base through C7-T1 . ALIGNMENT: There is straightening of the normal cervical lordosis. VERTEBRAL BODIES: The patient is status post anterior cervical fusion from C4 through C7. There is no hardware failure or osteolysis. JOINTS: There is no subluxation or dislocation. There is uncovertebral and facet osteoarthritis most pronounced at C5-C6. INTERVERTEBRAL DISCS: There is loss of intervertebral disc height. Intervertebral graft material is noted at C4-C5, C5-C6, and C6-C7. SOFT TISSUE: The prevertebral soft tissues are normal. OTHER: The skull base is normal. The lung apices are clear. IMPRESSION: STATUS POST ANTERIOR CERVICAL FUSION.
--- NOTE | 2018-04-23 18:27 | PN ---
Progress Note - Progress Note Date of Service: 04/23/18 SOAP: Subjective: []Patient was seen earlier today and this pm. Tolerated procedure well yesterday. No events ON. Tolerates PO well. Voids, Ambulated well. Transient episode of near fainting when first got OOB this am for XR. NO LOC. No other symptoms. Preop LUE pain resolved. Tolerates MJ collar well. Objective: []VSS afebrile. Wound s,c,d Alvino drain output noted. Drain was removed. Catheter appeared to be intact. Patient tolerated procedure well. AAOx3, LISBET, CN II-XII grossly intact. Motor 5/5 all extremities Sensory grossly intact to light touch. Assessment: []63 yom POD#1 C4-7 ACDF Plan: []Monitor VS, Neurochecks Encourage ambulation. XR revealed good placement of hardware, good alignment of the spine. IM consult for near fainting episode, possibly vasovagal. DC planning. Narciso Aguilar MD
[2018-04-24] MEDS: HYDROcodone/ACETAMIN 5-325 MG* 1 TAB PO PRN ×4 (01:11→14:00)
--- NOTE | 2018-04-24 04:49 | CONS ---
CC: Dr. Stuart; Dr. Juan Diego Rolle * CONSULTATION REPORT: DATE OF CONSULT: 04/23/18. PRIMARY CARE PROVIDER: Dr. Juan Diego Rolle. PHYSICIAN REQUESTING CONSULTATION: Dr. Deyanira Stuart. ATTENDING PHYSICIAN: Dr. Shorty Marie (dictated by Khushi Tadeo NP). REASON FOR CONSULTATION: Dizziness, possible near syncopal episode when getting up. HISTORY OF PRESENT ILLNESS: Mr. Burger is a 63-year-old male with no significant past medical history, who presented to the hospital for an elective anterior cervical diskectomy and fusion at C4-5, C5-6, and C6-7 with PEEK interbody cages locally harvested autologous bone graft and DBX endplates on 02/[address] Stuart. Postoperatively, the patient had been recovering well with no complications. He has denied any fever, chills, chest pain, shortness of breath, nausea, vomiting, diarrhea. The patient states that the first time when he went to get up today early this morning after receiving pain medication and after x-ray he reported an episode of dizziness and clamminess. By the time, he arrived back to the unit from x-ray, he was feeling better and had a cold cloth applied to his forehead. The patient was then resting off and on throughout the shift and on ambulating around the unit without any further symptoms independently with a steady gait. The patient denied any further lightheadedness or dizziness. The hospitalists were asked to consult due to this episode of dizziness. PAST MEDICAL HISTORY: Chronic neck pain with radicular symptoms to the left hand. PAST SURGICAL HISTORY: 1. Status post shoulder rotator cuff repair. 2. Status post anterior cervical diskectomy and fusion of the cervical spine as above in the HPI. HOME MEDICATIONS: Include EpiPen 0.3 mL intramuscularly as directed for allergy symptoms. ALLERGIES: IBUPROFEN and WASPS. FAMILY HISTORY: Reviewed and noncontributory. SOCIAL HISTORY: The patient denies tobacco, alcohol, recreational drug use. His , Jaymie Burger, will be his surrogate decision maker in the event he is unable to make decisions for himself. REVIEW OF SYSTEMS: I performed an 11-point review of systems. All the pertinent positives and negatives are mentioned in the history of present illness. The remaining review of systems are negative. PHYSICAL EXAM: Vital Signs: Temperature 97.8, heart rate 79, O2 sat 97% on room air, blood pressure 117/72. General Appearance: The patient is alert, pleasant, and appears to be in no acute distress. HEENT: Normocephalic, atraumatic. Pupils are equal and reactive to light. Extraocular movements are intact. The patient currently has a [place] J collar in place to his neck. Respiratory: There is no accessory muscle use. The lungs are clear to auscultation bilaterally. Cardiovascular: Regular rate and rhythm. S1 and S2 present. There are no murmurs, rubs or gallops. Abdomen is soft, nontender, and nondistended. There are bowel sounds present x4. Extremities: There is no lower extremity edema. DP and PT pulses are 2+ and symmetric. Musculoskeletal: There is no clubbing or cyanosis noted. The patient exhibits good strength in all extremities. Neurological: The patient is alert and oriented x4. Cranial nerves II through XII are grossly intact. Psychological: The patient is calm and cooperative. Skin: There are no rashes or abnormalities seen. He has a dressing to his anterior neck that is clean, dry, and intact. DIAGNOSTIC STUDIES/LAB DATA: Preop labs from 04/15/18 reveal a sodium of 140, potassium 4.5, chloride 104, CO2 is 30, BUN 14, creatinine 0.94, glucose 87. White blood cell count 6.7, hemoglobin 15.6, hematocrit 44, platelet count 210. IMPRESSION: Mr. Burger is a 63-year-old male with past medical history significant for chronic neck pain with radiculopathy, who is status post an elective ACDF of his cervical spine with Dr. Stuart. He is postop day 1. He was seen in consultation by the hospitalist for complaints of dizziness upon getting up earlier today. ASSESSMENT/PLAN: 1. Dizziness. I suspect this is secondary to the patient's first time getting up postoperatively and combination of pain medication. He is currently not orthostatic and his symptoms have resolved and not returned. He can go home tomorrow per Neurosurgery. 2. Status post anterior cervical diskectomy and fusion of the cervical spine. Management will be per Dr. Stuart. The patient will continue to have his [place] J collar in place. Continue pain medications. 3. Fluids, electrolytes, and nutrition. The patient is on a soft diet. 4. Code status: Full code. 5. DVT prophylaxis: He has SCDs per Neurosurgery. 6. Disposition: Inpatient with disposition per Neurosurgery. TIME SPENT: Time for this consultation was approximately 60 minutes, greater than half of that was spent with the patient discussing medications, past medical history, the events leading up to his arrival today, and performing a physical examination. The case has been reviewed with the attending, Dr. Marie, who agrees with the plan of care. KHUSHI TADEO, DOOR TRIMMER [id number]/[facility] #: [id number] CHRISTIAN
--- NOTE | 2018-04-24 13:21 | PN ---
Progress Note - Progress Note Date of Service: 04/24/18 SOAP: Subjective: []No events ON. Tolerates PO well. Voids, Ambulated well. No other episodes of dizziness. Was evaluated by Hospitalist team and cleared to go home. Preop LUE pain resolved. Tolerates MJ collar well. Wants to go home. Objective: []VSS afebrile. Wound s,c,d AAOx3, LISBET, CN II-XII grossly intact. Motor 5/5 all extremities Sensory grossly intact to light touch. Assessment: []63 yom POD#2 C4-7 ACDF Plan: []]Monitor VS, Neurochecks Encourage ambulation. Appreciate IM consult. DC today. Full DC instructions were given. Narciso Aguilar MD
[2018-04-24 14:28] VITALS: BP 145/88
--- NOTE | 2018-04-24 19:03 | DS ---
DISCHARGE SUMMARY: DATE OF ADMISSION: 04/22/18 DATE OF DISCHARGE: 04/24/18 ADMISSION DIAGNOSES: 1. Degenerative disk disease. 2. Cervical spondylosis with herniated nucleus pulposus. POSTOPERATIVE DIAGNOSES: 1. Degenerative disk disease. 2. Cervical spondylosis with herniated nucleus pulposus. DISPOSITION: Home. DISCHARGE CONDITION: Good. HOSPITAL COURSE: The patient is a very pleasant 63-year-old gentleman with complaints of neck pain radiating mostly to the left upper extremity with MRI findings consistent with multilevel degenerative disk disease at C4-5, C5-6, C6- 7. The patient was offered the options of surgical intervention after failing conservative modalities in the form of anterior cervical diskectomy and fusion. He underwent the above procedure. He tolerated the procedure very well, was extubated and was transferred to the floor. The patient continued to improve. His preoperative left upper extremity pain had completed resolved. His postoperative x- ray revealed good placement of the hardware and good alignment of his cervical spine. He had 1 episode of dizziness while he was getting his x -ray and for this reason, hospitalist service was consulted. The patient was evaluated and was good to be discharged home, and on postoperative day 2, he was felt ready to be discharged home. He was tolerating p.o. well. He had excellent pain control and was able to void and ambulate well. Discharge instructions were given to the patient. [id number]/[facility] #: [id number] MTDD
== END 2018-04-24 14:30 | disposition home or self-care (01) | DRG 23 ==
LOC: AA 11:18 → SSU 20:30
PROVIDERS: ADMIT Neurological Surgery; ATTEND Neurological Surgery
PROC: 0RG20A0 Fusion of 2 or more Cervical Vertebral Joints with Interbody Fusion Device, Anterior Approach, Anterior Column, Open Approach (ICD-10-PCS; 2018-04-22)
PROC: 0RB30ZZ Excision of Cervical Vertebral Disc, Open Approach (ICD-10-PCS; principal; 2018-04-22 12:45)
DX: M50.123 Cervical disc disorder at C6-C7 level with radiculopathy (principal); M47.812 Spondylosis without myelopathy or radiculopathy, cervical region; M25.78 Osteophyte, vertebrae; M50.122 Cervical disc disorder at C5-C6 level with radiculopathy; R42 Dizziness and giddiness; Z88.6 Allergy status to analgesic agent; Z91.030 Bee allergy status
CPT/HCPCS: 72040; 76001; A9270-GY; J0690; J1100; J2250; J2270; J2405; J2704; J3010